=== PATIENT | male | born 1980 | race Asian ===

== ENCOUNTER 2024-07-06 10:53 | Day surgery (SDC) | payer BC ==
[~2024-07-06] VITALS: Ht 170.2 cm; Wt 63.5 kg
[2024-07-06] MEDS ORDERED: fentaNYL CITRATE/PF 100 MCG/2 ML AMP ONE (12:41)
[2024-07-06] MEDS ORDERED: MIDAZOLAM HCL 2 MG/2 ML VIAL (VERSED) ONE (12:41)
[2024-07-06] MEDS ORDERED: PROPOFOL 200MG/ 20ML VIAL (DIPRIVAN) IV ONE (12:42)
[2024-07-06] MEDS ORDERED: NS IRRIG SOLN 1000 ML IR ONE (12:42)
[2024-07-06] MEDS ORDERED: LR 1,000 ML IV.SOLN IV ONE (12:42)
[2024-07-06] MEDS ORDERED: BUPIVACAINE /EPINEPHRINE/PF 0.25% 30 ML VIAL ONE (12:42)
[2024-07-06] MEDS ORDERED: ACETAMINOPHEN I.V. 1000 MG 100 ML IV ONE (12:42)
[2024-07-06 12:56] VITALS: O2SAT 97
[2024-07-06] MEDS ORDERED: HYDROmorphone 1 MG/ML INJ. CARTRIDGE IVP PRN (13:00)
[2024-07-06] MEDS ORDERED: fentaNYL CITRATE/PF 100 MCG/2 ML AMP IVP PRN ×2 (13:00)
[2024-07-06] MEDS ORDERED: LR 1,000 ML IV ONE (13:00)
[2024-07-06] MEDS ORDERED: ONDANSETRON HCL 4 MG/2 ML VIAL IVP PRN (13:00)
[2024-07-06 15:15] VITALS: BP_SYST 115; PULSE 66; RESP 18
== END 2024-07-06 15:05 | disposition home or self-care (01) ==
LOC: SDS 10:53 → SMU 10:54 → SDS 15:05
PROVIDERS: ATTEND Surgery
DX: A63.0 Anogenital (venereal) warts (principal); Z79.899 Other long term (current) drug therapy; Z80.1 Family history of malignant neoplasm of trachea, bronchus and lung; Z83.3 Family history of diabetes mellitus
CPT/HCPCS: 87081; 46270; 93005; 46910; 71045; 88305; J3490; J2250; J2704; J3010; J7120; J0131; 88304